=== PATIENT | male | born 1960 | race Caucasian/White ===

== ENCOUNTER 2018-08-12 20:11 | Emergency (ER) | payer MEDICAID ==
[~2018-08-12] VITALS: Ht 165.1 cm; Wt 76.7 kg
[2018-08-12 20:21] VITALS: Ht 165.1 cm; Wt 76.7 kg
[2018-08-12 21:56] VITALS: BP 143/78
== END 2018-08-12 22:48 | disposition home or self-care (01) ==
LOC: ED 20:11
DX: I16.0 Hypertensive urgency (principal); M54.2 Cervicalgia